=== PATIENT | male | born 1960 | race Caucasian/White ===

== ENCOUNTER 2018-01-19 09:19 | Emergency (ER) | payer OTHER, SELFPAY ==
[2018-01-19 09:24] VITALS: BP 146/90; PULSE 98; RESP 18; TEMP 36.9; O2SAT 98; BMI 35.2
[2018-01-19 10:21] LABS: Alanine Aminotransferase 79 IU/L (21-72); Albumin 4.5 g/dL (3.5-5.0); Albumin Globulin Ratio 1.2 (1.0-2.8); Alkaline Phosphatase 147 U/L (38-126); Aspartate Aminotransferase 138 IU/L (17-59); Bilirubin Total 1.1 mg/dL (0.2-1.3); Calcium 8.6 mg/dL (8.4-10.2); Estimated Glomerular Filt Rate > 60.0 mL/min (>60); Globulin 3.7 g/dL (1.7-4.1); Glucose 95 mg/dL (70-100); Potassium 4.3 mmol/L (3.4-5.1); Sodium 145 mmol/L (137-145); Total Protein 8.2 g/dL (6.3-8.2)
[2018-01-19 10:28] LABS: Ethanol (ETOH) 329 mg/dL
[2018-01-19 10:29] LABS: Add Manual Diff / Slide Review NO; Basophils Percent Auto 0.8 % (0-2); Eosinophils Percent Auto 1.5 % (2-4); Hematocrit 39.6 % (41-53); Hemoglobin 14.2 g/dL (13.5-17.5); Lymphocytes Percent Auto 32.4 % (25-40); Mean Corpuscular HGB Conc 35.9 % (30-36); Mean Corpuscular Hemoglobin 35.3 PG (26-34); Mean Corpuscular Volume 98.3 fL (80-100); Monocytes Percent Auto 19.1 % (3-14); Neutrophils Absolute Auto 1800 /uL (3000-5900); Neutrophils Percent Auto 46.2 % (50-75); Platelet Count 61 X10^3/uL (150-400); Red Blood Cell Count 4.03 X10^6/uL (4.5-5.9); Red Cell Distribution Width 14.2 % (11.6-14.8); White Blood Cell Count 3.9 X10^3/uL (4.5-11.0)
[2018-01-19 10:38] LABS: HEMOLYSIS 55 (0-50)
--- NOTE | 2018-01-19 10:55 | ED_ITS ---
HPI - Medical Clearance General Chief complaint: Medical Clearance Stated complaint: RECOVERING ALCOHOLIC Time Seen by Provider: 01/19/18 09:26 Source: patient and family Mode of arrival: ambulatory Limitations: no limitations History of Present Illness HPI Narrative: Patient presents to the emergency department today with a chief complaint of request for detox from alcohol. He has been through multiple programs in the past, most recently 1 year ago. He had been clean until a few months ago when he receives some unfortunate news regarding prostate cancer and possible surgeries regarding this. He drinks upwards of 20 beers daily, most recently a few hours ago. He denies any signs of withdrawal right now such as headache hallucinations or tremor. complaint: medical clearance requested Onset (ago): hour(s) Reason for Medical Clearance: intoxication Place: home Alleged Intoxication: Yes Associated Symptoms: denies other symptoms Previous Rx's Medication Instructions Recorded lorazepam [Ativan] See Label Instructions .ROUTE 01/19/18 .COMPLEX #19 tab ondansetron HCl [Zofran] 4 mg PO Q6H PRN #10 tab 01/19/18 Allergies Allergy/AdvReac Type Severity Reaction Status Date / Time No Known Drug Allergies Allergy Verified 01/19/18 09:27 Review of Systems Review of Systems All systems reviewed & are unremarkable except as noted in HPI and below Constitutional Denies chills, Denies fever(s), Denies lethargy and Denies weakness Eyes Denies change in vision, Denies eye discharge, Denies irritation and Denies loss of vision ENT Ears, Nose, Mouth, and Throat: Denies change in voice, Denies neck pain and Denies sore throat Cardiovascular Denies chest pain, Denies irregular heart rhythm, Denies lightheadedness, Denies palpitations, Denies dyspnea, Denies dyspnea on exertion and Denies orthopnea Respiratory Denies cough, Denies dyspnea, Denies dyspnea on exertion and Denies wheezing Gastrointestinal Gastrointestinal: Denies abdominal pain, Denies change in bowel habits, Denies diarrhea, Denies nausea and Denies vomiting Genitourinary Denies hematuria, Denies flank pain, Denies urinary incontinence and Denies urinary urgency Musculoskeletal Denies neck pain Integumentary/Breasts Denies pruritus, Denies erythema, Denies rash and Denies wounds Neurologic Denies loss of vision and Denies weakness Endocrine Denies palpitations Allergic/Immunologic Denies wheezing PFSH Medical History Alcoholism (Acute) Prostate CA (Acute) Social History Smoking Status: Current every day smoker Exam Narrative Exam Narrative: Pleasant 57-year-old male obviously intoxicated Const General: cooperative and well developed Nutritional Appearance: well nourished Orientation: alert, awake, oriented x3 and not confused [facility] Head: normocephalic and atraumatic Ears: external ears normal and TM's normal bilaterally Nose: external nose normal and No nasal discharge Face and sinus: sinuses nontender, face symmetric, no sinus tenderness and No dry mucous membranes Mouth: oral mucosae normal and moist mucous membranes Teeth and gingiva: dentition normal Throat: tonsils normal and uvula midline Resp Effort & Inspection: normal respiratory effort, able to speak in complete sentences, no respiratory distress and no use of accessory muscles Auscultation: clear to auscultation bilaterally, no rales, no rhonchi and no wheezes GI Inspection: non-distended Palpation: soft, no hepatosplenomegaly, No guarding, No pulsatile mass and No tender Auscultation: normal bowel sounds Back/Spine/Pelvis Back: No CVA tenderness Cervical Spine: cervical ROM normal and No pain with cervical ROM Thoracic/Lumbar Spine: thoracic and lumbar spine normal to inspection Neuro General: alert, awake and oriented x3 Cognition: normal cognition Speech: speech normal Extrem General: full ROM, no clubbing, cyanosis or edema, no pedal edema and no calf tenderness MDM - Medical Clearance Lab Data Result diagrams: 01/19/18 09:56 01/19/18 09:56 Lab Results 01/19/18 01/19/18 01/19/18 Range/Units 09:56 09:56 11:00 WBC 3.9 L (4.5-11.0) X10^3/uL RBC 4.03 L (4.5-5.9) X10^6/uL Hgb 14.2 (13.5-17.5) g/dL Hct 39.6 L (41-53) % MCV 98.3 (80-100) fL MCH 35.3 H (26-34) PG MCHC 35.9 (30-36) % RDW 14.2 (11.6-14.8) % Plt Count 61 L (150-400) X10^3/uL Neut % (Auto) 46.2 L (50-75) % Lymph % (Auto) 32.4 (25-40) % [place] % (Auto) 19.1 H (3-14) % Eos % (Auto) 1.5 L (2-4) % Baso % (Auto) 0.8 (0-2) % Neut # (Auto) 1800 L (3723-2160) /uL Sodium 145 (137-145) mmol/L Potassium 4.3 (3.4-5.1) mmol/L Chloride 104.0 (98-107) mmol/L Carbon Dioxide 26.0 (22-32) mmol/L BUN 7.0 L (9-20) mg/dL Creatinine 0.50 L (0.66-1.25) mg/dL Estimated GFR > 60.0 (>60) mL/min BUN/Creatinine Ratio 14.0 (6-22) Glucose 95 (70-100) mg/dL Calcium 8.6 (8.4-10.2) mg/dL Total Bilirubin 1.1 (0.2-1.3) mg/dL AST 138 H (17-59) IU/L ALT 79 H (21-72) IU/L Alkaline Phosphatase 147 H (38-126) U/L Total Protein 8.2 (6.3-8.2) g/dL Albumin 4.5 (3.5-5.0) g/dL Globulin 3.7 (1.7-4.1) g/dL Albumin/Globulin Ratio 1.2 (1.0-2.8) Urine Opiates Screen Negative (Negative) Ur Oxycodone Screen Negative (Negative) Urine Methadone Screen Negative (Negative) Ur Barbiturates Screen Negative (Negative) U Tricyclic Antidepress Negative (Negative) Ur Phencyclidine Scrn Negative (Negative) Ur Amphetamines Screen Negative (Negative) U Methamphetamines Scrn Negative (Negative) Ur MDMA Scrn (Ecstasy) Negative (Negative) U Benzodiazepines Scrn Negative (Negative) Urine Cocaine Screen Negative (Negative) U Marijuana (THC) Screen Positive H (Negative) Ethyl Alcohol 329 mg/dL Course Reevaluation(s) Reevaluation #1: Patient is starting to get a little jittery. Ativan and Zofran ordered. She has an available bed at [facility] and a cab will be arranged to pick him up at 1900. Time: 16:28 Last Vital Signs Temp 98.4 F 05/13/18 09:24 Pulse 99 H 01/19/18 15:48 Resp 16 01/19/18 15:48 BP 142/72 H 01/19/18 15:48 Pulse Ox 98 01/19/18 15:48 Discharge Plan Departure Patient Disposition: Home, Self-Care Clinical Impression: Alcohol abuse Instructions: Alcohol Use Disorder Activity Restrictions/Additional Instructions: You have been medically cleared for transfer to Detox A cab will take you directly to [facility] Prescriptions: New lorazepam [Ativan] 1 mg tablet See Label Instructions .ROUTE .COMPLEX Qty: 19 RF: 0 ondansetron HCl [Zofran] 4 mg tablet 4 mg PO Q6H PRN (Reason: nausea and vomiting) Qty: 10 RF: 0
[2018-01-19 11:14] LABS: Urine Tetrahydrocannabinol Positive (Negative)
[2018-01-19 11:15] LABS: Urine Amphetamines Negative (Negative); Urine Barbiturates Negative (Negative); Urine Benzodiazepines Negative (Negative); Urine Cocaine Negative (Negative); Urine MDMA Negative (Negative); Urine Methadone Negative (Negative); Urine Methamphetamines Negative (Negative); Urine Morphine/Opi cutoff 2000 Negative (Negative); Urine Oxycodone Negative (Negative); Urine Phencyclidine Negative (Negative); Urine Tricyclic Antidepressant Negative (Negative)
[2018-01-19 12:58] VITALS: BP 116/69; PULSE 110; RESP 16; O2SAT 96
--- NOTE | 2018-01-19 14:14 | PC.NURSE ---
Rec'd report from KYLE Dunaway. Pt sleeping in stretcher. Advised by RN there is detox bed available in [place]. Pt is too drowsy at this time to speak to detox facility for an intake assessment. Continue to rouse pt periodically until [facility].
--- NOTE | 2018-01-19 14:57 | PC.NURSE ---
Pt awake and alert at this time. advised Pt there was a bed at [facility] and he was wanting to move forward with the process. Pt currently on the phone with detox center for intake assessment. given water to drink. sitting up in bed. NAD
--- NOTE | 2018-01-19 15:47 | PC.NURSE ---
Pt spoke to RN at [facility]. Chart to be faxed over and they will call back with more information. Pt AAOx4, taking PO fluids, ambulating around room. NAD
[2018-01-19 15:48] VITALS: BP 142/72; PULSE 99; RESP 16; O2SAT 98
--- NOTE | 2018-01-19 16:16 | PC.NURSE ---
Rec'd call from Deidre at [facility]. Pt has a confirmed bed at 2000 tonight. Pt agreeable and happy to go. Reports he is feeling anxious and nauseous and wants to go out and get some air. Called security who escorted him out in the front of the department. Friend Obie, who pt gave permission to give information to -called and wanted an update. update given and advised Obie that i will call [facility] when pt leaves department with cab. Obie, Friend [phone]
[2018-01-19] MEDS: LORazepam 0.5 MG TABLET 2 MG PO (17:24)
--- NOTE | 2018-01-19 18:27 | PC.NURSE ---
Tate aware of needed taxi at 1915 for transport to [facility].
[2018-01-19 19:02] VITALS: BP 138/84; PULSE 120; RESP 16; O2SAT 94
[2018-01-19 19:20] VITALS: BP 156/98; PULSE 128; RESP 16; O2SAT 98
[2018-01-19] MEDS: ONDANSETRON 4 MG ODT PO (19:24)
== END 2018-01-19 19:23 | disposition home or self-care (01) ==
LOC: ED 11:48
PROVIDERS: Emergency Provider Emergency Medicine; PCP Nurse Practitioner Primary Care
DX: F10.10 Alcohol abuse, uncomplicated (principal)
CPT/HCPCS: 80053; 80305; 80320; 85025; 99283; 99284